=== PATIENT | male | born 1980 | race Asian ===

== ENCOUNTER 2021-08-11 20:41 | Emergency (ER) | payer SELFPAY ==
[2021-08-11 23:26] VITALS: BP 119/98
--- NOTE | 2021-08-11 23:42 | Emergency Department Report ---
ED Alcohol HPI - General Chief Complaint: Alcohol Stated Complaint: DT(WITHDRAWAL FROM ETOH) Time Seen by Provider: 08/11/21 23:35 Source: patient, EMS Mode of arrival: Stretcher Limitations: No Limitations - History of Present Illness Initial Comments: Patient is 41 years old male with history of chronic alcohol abuse. Patient brought to the emergency room via EMS from home for evaluation of alcohol withdrawal symptoms. Patient stated that last time he drink yesterday. He stated that he drinks vodka every day. Patient denied any suicidal or homicidal ideation. No visual or auditory hallucination. No history of seizure. No tremor. Patient denies any chest pain or shortness of breath. Patient stated that he just wants something to eat. Patient also stated that he has been outside in the sun and it was hot and he feels like he is dehydrated. MD Complaint: alcohol dependence Chronic Alcohol Use: Yes Recent Trauma: No Associated Symptoms: denies other symptoms Treatments Prior to Arrival: none - Related Data Allergies Allergy/AdvReac Type Severity Reaction Status Date / Time No Known Allergies Allergy Unverified 08/11/21 23:26 ED Review of Systems ROS: Stated complaint: DT(WITHDRAWAL FROM ETOH) Other details as noted in HPI Comment: All other systems reviewed and negative Constitutional: denies: chills, fever Respiratory: denies: cough, shortness of breath, SOB with exertion, wheezing Cardiovascular: palpitations. denies: chest pain Gastrointestinal: denies: abdominal pain, nausea, vomiting, diarrhea, constipation, hematemesis, melena, hematochezia Musculoskeletal: denies: back pain Neurological: denies: headache, weakness, numbness, paresthesias, confusion, abnormal gait Psychiatric: denies: anxiety, depression, auditory hallucinations, visual hallucinations, homicidal thoughts, suicidal thoughts ED Past Medical Hx - Past Medical History Previous Medical History?: Yes Additional medical history: HEP C, ETOH Abuse - Surgical History Past Surgical History?: No - Social History Smoking Status: Current Every Day Smoker Substance Use Type: Alcohol ED Physical Exam - General Limitations: No Limitations General appearance: alert, in no apparent distress - Head Head exam: Present: atraumatic, normocephalic, normal inspection - Eye Eye exam: Present: normal appearance - ENT ENT exam: Present: normal exam - Neck Neck exam: Present: normal inspection, full ROM. Absent: tenderness, meningismus - Respiratory Respiratory exam: Present: normal lung sounds bilaterally - Cardiovascular Cardiovascular Exam: Present: regular rate, normal heart sounds. Absent: normal rhythm, bradycardia, tachycardia - GI/Abdominal GI/Abdominal exam: Present: soft. Absent: distended, tenderness, guarding, rebound, rigid - Extremities Exam Extremities exam: Present: normal inspection, full ROM, normal capillary refill. Absent: tenderness, pedal edema, joint swelling, calf tenderness - Back Exam Back exam: Present: normal inspection, full ROM. Absent: CVA tenderness (R), CVA tenderness (L) - Neurological Exam Neurological exam: Present: alert, oriented X3, CN II-XII intact, normal gait, reflexes normal. Absent: motor sensory deficit - Psychiatric Psychiatric exam: Present: normal mood. Absent: homicidal ideation, suicidal ideation - Skin Skin exam: Present: warm, intact, normal color ED Course Vital Signs 08/11/21 08/12/21 23:18 02:01 Temperature 98.9 F Pulse Rate 103 H Respiratory 16 Rate Blood Pressure 119/98 O2 Sat by Pulse 96 98 Oximetry ED Medical Decision Making - Lab Data Result diagrams: 08/11/21 23:55 08/11/21 23:55 - Medical Decision Making Patient is 41 years old male with history of chronic alcohol abuse. Patient brought to the emergency room via EMS from home for evaluation of alcohol withdrawal symptoms. Patient stated that last time he drink yesterday. He stated that he drinks vodka every day. Patient denied any suicidal or homicidal ideation. No visual or auditory hallucination. No history of seizure. No tremor. Patient denies any chest pain or shortness of breath. Patient stated that he just wants something to eat. Patient also stated that he has been outside in the sun and it was hot and he feels like he is dehydrated. Labs reviewed and showed a CK of 1332. Patient started on normal saline. Patient remained stable in the ER with stable vital sign. Critical care attestation.: If time is entered above; I have spent that time in minutes in the direct care of this critically ill patient, excluding procedure time. ED Disposition Clinical Impression: Rhabdomyolysis, Alcohol withdrawal Disposition: HOME / SELF CARE / HOMELESS Is pt being admited?: No Condition: Stable Instructions: Rhabdomyolysis, Alcohol Withdrawal Syndrome Referrals: PRIMARY CARE, [Referring] - 3-5 Days
[2021-08-11] MEDS ORDERED: LORazepam 2 MG/ML VIAL IV PRN ×3 (23:56)
[2021-08-12 00:20] LABS: Basophils # (Auto) 0.1 K/mm3 (0.0-0.1); Basophils % (Auto) 0.8 % (0.0-1.8); Eosinophils # (Auto) 0.1 K/mm3 (0.0-0.4); Eosinophils % (Auto) 1.2 % (0.0-4.3); Hematocrit 39.4 % (35.5-45.6); Hemoglobin 13.4 gm/dl (11.8-15.2); Lymphocytes % (Auto) 20.3 % (13.4-35.0); Mean Corpuscular HGB Conc 34 % (32-34); Mean Corpuscular Volume 97 fl (84-94); Monocytes # (Auto) 1.1 K/mm3 (0.0-0.8); Monocytes % (Auto) 10.9 % (0.0-7.3); Platelet Count 275 K/mm3 (140-440); Red Blood Count 4.05 M/mm3 (3.65-5.03); Red Cell Distribution Width 14.5 % (13.2-15.2)
[2021-08-12 00:33] LABS: BUN/Creatinine Ratio 23; Blood Urea Nitrogen 18 mg/dL (9-20); Calcium 9.2 mg/dL (8.4-10.2); Hemolysis Index 5
[2021-08-12] MEDS ORDERED: SODIUM CHLORIDE 0.9% 1000 ML 1,000 ML IV ONE (01:46)
== END 2021-08-12 06:00 | disposition home or self-care (01) ==
LOC: ED 20:41
DX: M62.82 Rhabdomyolysis (principal); F10.239 Alcohol dependence with withdrawal, unspecified; F17.200 Nicotine dependence, unspecified, uncomplicated
CPT/HCPCS: 36415; 80048; 82550; 85025; 96360; 99284; J7030; 80320; G0480

== ENCOUNTER 2021-08-12 11:49 | Emergency (ER) | payer SELFPAY ==
[2021-08-12 13:59] LABS: Basophils % (Auto) 0.7 % (0.0-1.8); Eosinophils # (Auto) 0.1 K/mm3 (0.0-0.4); Eosinophils % (Auto) 1.8 % (0.0-4.3); Hematocrit 39.1 % (35.5-45.6); Lymphocytes # (Auto) 1.3 K/mm3 (1.2-5.4); Lymphocytes % (Auto) 23.4 % (13.4-35.0); Mean Corpuscular HGB Conc 33 % (32-34); Mean Corpuscular Volume 98 fl (84-94); Monocytes # (Auto) 0.5 K/mm3 (0.0-0.8); Monocytes % (Auto) 8.8 % (0.0-7.3); Platelet Count 252 K/mm3 (140-440); Red Blood Count 3.99 M/mm3 (3.65-5.03); Red Cell Distribution Width 14.8 % (13.2-15.2)
[2021-08-12 14:13] LABS: Blood Urea Nitrogen 15 mg/dL (9-20); Calcium 8.7 mg/dL (8.4-10.2); Hemolysis Index 18
[2021-08-12 14:15] LABS: BUN/Creatinine Ratio 25
--- NOTE | 2021-08-12 14:21 | Consultation ---
History of Present Illness - Reason for Consult Consult date: 08/12/21 Reason for consult: SI, ETOH - History of Present Psychiatric Illness HPI: Patient is 41 years old male with history of chronic alcohol abuse. Patient brought to the emergency room via EMS from home for evaluation of alcohol withdrawal symptoms. Patient stated that last time he drink yesterday. He stated that he drinks vodka every day. Patient denied any suicidal or homicidal ideation. No visual or auditory hallucination. No history of seizure. No tremor. Patient denies any chest pain or shortness of breath. Patient stated that he just wants something to eat. Patient also stated that he has been outside in the sun and it was hot and he feels like he is dehydrated. The patient was seen today. He says he's been having increasing paranoia. The patient says "everything scares me." He appears anxious. He says he feels suicidal but denies having a plan. The patient says he has a history of schizophrenia but hasn't been on meds in years. He says "I thought I could con trol it." He denies hallucinations. The patient says he drinks a 12 pack to a case of been daily. He also says he drinks vodka. 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 PAST PSYCHIATRIC HISTORY: Diagnoses: Schizophrenia Suicide attempts or Self-harm behavior: Yes Prior psychiatric hospitalizations: Yes Substance Abuse history: THC, Alcohol Previous psychiatric medications tried: Could not recall Outpatient treatment: Denies PAST MEDICAL HISTORY: None reported Family Psychiatric History: None reported or documented SOCIAL HISTORY Marital Status: Single Living Arrangements: Homeless Employment Status: Unemployed Access to guns/weapons: Denies Education: History of Abuse:Denies Legal History: Denies REVIEW OF SYSTEMS Constitutional: Negative for weight loss ENT: Negative for stridor Respiratory: Negative for cough or hemoptysis All other systems reviewed and are negative MENTAL STATUS EXAMINATION General Appearance and Behavior: Age appropriate, wearing appropriate clothes, cooperative, polite with questioning, fair eye contact Cooperation: cooperative Psychomotor Behavior: Psychomotor normal Mood: depressed, anxious Affect and affective range: congruent with stated mood Thought Process: goal directed Thought Content: SI, paranoia Speech: Normal volume, Regular rate and rhythm Suicidal Ideation: Yes Homicidal Ideation: Denies Hallucination: Denies Delusions: yes, paranoia Impulse Control: Limited Insight and Judgment: Limited Memory: Limited Attention: Distracted Orientation: a/o x 3 Diagnoses: Schizophrenia Alcohol Dependence Treatment Plan 1013 Risperidone 0.5mg po BID Vistaril 25mg po BID Trazodone 50mg po qhs CIWA Sitter: Defer to primary Medical: Per primary Disposition: recommend acute psychiatric inpatient treatment Will follow. Thanks Case staffed with Dr. Ramos Medications and Allergies Allergies Allergy/AdvReac Type Severity Reaction Status Date / Time No Known Allergies Allergy Unverified 08/11/21 23:26 Home Medications Medication Instructions Recorded Confirmed Last Taken Type chlordiazePOXIDE [Librium] 25 mg PO Q8H #15 capsule 08/12/21 Unknown Rx Mental Status Exam - Vital signs Last Vital Signs Temp 98.5 F 08/12/21 12:17 Pulse 79 08/12/21 12:17 Resp 20 08/12/21 12:17 BP 134/85 08/12/21 12:17 Pulse Ox 99 08/12/21 12:17 Results Result Diagrams: 08/12/21 13:09 08/12/21 13:09 Abnormal lab results 08/12/21 08/12/21 08/12/21 Range/Units 13:09 13:09 13:09 MCV 98 H (84-94) fl MCH 33 H (28-32) pg [place] % (Auto) 8.8 H (0.0-7.3) % Sodium 133 L (137-145) mmol/L Carbon Dioxide 21 L (22-30) mmol/L Creatinine 0.6 L (0.8-1.3) mg/dL Glucose 123 H (75-100) mg/dL Acetaminophen 5.0 L (10.0-30.0) ug/mL All other labs normal.
[2021-08-12] MEDS ORDERED: chlordiazePOXIDE 25 MG CAP PO PRN (14:27)
[2021-08-12] MEDS ORDERED: LORazepam 2 MG/ML VIAL IV PRN (14:27)
--- NOTE | 2021-08-12 15:00 | Event Note ---
Date: 08/12/21 41-year-old with a history of anxiety and depression and schizophrenia who now presents with paranoid thoughts and suicidal thoughts for the last couple of days progressively getting worse. Patient states he was trying to get the thoughts of his head. Patient was seen by psychiatric team this morning and was suggested to be 1013 and to continue home medications. No new complaint at this point.
--- NOTE | 2021-08-12 15:08 | Emergency Department Report ---
ED Psych HPI - General Chief Complaint: Psych Stated Complaint: MH ISSUES Time Seen by Provider: 08/12/21 12:51 Source: patient Mode of arrival: Ambulatory - History of Present Illness Initial Comments: 41-year-old with a history of anxiety and depression and schizophrenia who now presents with paranoid thoughts and suicidal thoughts for the last couple of days progressively getting worse. Patient states he was trying to get the thoughts of his head. Patient was seen by psychiatric team this morning and was suggested to be 1013 and to continue home medications. No new complaint at this point. MD Complaint: suicidal ideation - Related Data Previous Rx's Medication Instructions Recorded Last Taken Type chlordiazePOXIDE [Librium] 25 mg PO Q8H #15 capsule 08/12/21 Unknown Rx Allergies Allergy/AdvReac Type Severity Reaction Status Date / Time No Known Allergies Allergy Unverified 08/11/21 23:26 ED Review of Systems ROS: Stated complaint: MH ISSUES Other details as noted in HPI Comment: All other systems reviewed and negative Psychiatric: depression, homicidal thoughts, suicidal thoughts ED Past Medical Hx - Past Medical History Additional medical history: HEP C, ETOH Abuse - Social History Smoking Status: Current Some Day Smoker Substance Use Type: Marijuana, Methamphetamines - Medications Home Medications: Home Medications Medication Instructions Recorded Confirmed Last Taken Type chlordiazePOXIDE [Librium] 25 mg PO Q8H #15 capsule 08/12/21 Unknown Rx ED Physical Exam - General Limitations: No Limitations General appearance: alert, in no apparent distress - Head Head exam: Present: normal inspection - Eye Eye exam: Present: normal appearance Pupils: Present: normal accommodation - ENT ENT exam: Present: normal exam, normal orophraynx, mucous membranes moist - Neck Neck exam: Present: normal inspection, full ROM. Absent: tenderness - Respiratory Respiratory exam: Present: normal lung sounds bilaterally. Absent: respiratory distress, accessory muscle use - Cardiovascular Cardiovascular Exam: Present: regular rate, normal rhythm, normal heart sounds - GI/Abdominal GI/Abdominal exam: Present: soft, normal bowel sounds. Absent: tenderness - Extremities Exam Extremities exam: Present: normal inspection, normal capillary refill. Absent: tenderness, pedal edema - Back Exam Back exam: Absent: tenderness - Neurological Exam Neurological exam: Present: alert, oriented X3 - Psychiatric Psychiatric exam: Present: normal affect, normal mood, suicidal ideation - Skin Skin exam: Present: warm, intact ED Course Vital Signs 08/12/21 08/12/21 08/12/21 12:17 14:38 14:49 Temperature 98.5 F 97.8 F Pulse Rate 79 78 79 Respiratory 20 15 15 Rate Blood Pressure 134/85 149/78 Blood Pressure 145/75 [Right] O2 Sat by Pulse 99 99 100 Oximetry - Reevaluation(s) Reevaluation #1: 08/12/21 15:07 here with paranoid and suicidal thought-- will go ahead and order routine psych labs and have mental health consulted--will continue to monitor this patient in the meantime. ED Medical Decision Making - Lab Data Result diagrams: 08/12/21 13:09 08/12/21 13:09 Critical care attestation.: If time is entered above; I have spent that time in minutes in the direct care of this critically ill patient, excluding procedure time. ED Disposition Clinical Impression: Paranoid schizophrenia, Suicide ideation Disposition: 30 STILL A PATIENT Is pt being admited?: No Does the pt Need Aspirin: No Condition: Stable
[2021-08-12] MEDS: risperiDONE 0.25 MG TAB PO SCH ×2 (15:19→22:30)
[2021-08-12] MEDS: hydrOXYzine PAMOATE 25 MG CAP PO SCH ×2 (15:19→22:30)
[2021-08-12] MEDS ORDERED: traZODone 50 MG TAB PO SCH (22:00)
--- NOTE | 2021-08-13 09:40 | Progress Note ---
Subjective - Reason for Consult Consult date: 08/13/21 Reason for consult: SI - Chief Complaint Chief complaint: The patient was seen today. He is awake. He says he's doing alright. I ask him was he feeling better than yesterday, he replies "yes I am." The patient says he slept good and his appetite is "very well." He denies SI/HI or hallucinations of any kind. REVIEW OF SYSTEMS Constitutional: Negative for weight loss ENT: Negative for stridor Respiratory: Negative for cough or hemoptysis All other systems reviewed and are negative MENTAL STATUS EXAMINATION General Appearance and Behavior: Age appropriate, wearing appropriate clothes, cooperative, polite with questioning, fair eye contact Cooperation: cooperative Psychomotor Behavior: Psychomotor normal Mood: alright, better Affect and affective range: congruent with stated mood Thought Process: goal directed Thought Content: None Speech: Normal volume, Regular rate and rhythm Suicidal Ideation: Denies Homicidal Ideation: Denies Hallucination: Denies Delusions: Denies Impulse Control: Limited Insight and Judgment: Limited Memory: Limited Attention: attentive Orientation: a/o x 3 Diagnoses: Schizophrenia Alcohol Dependence Treatment Plan d/c 1013 Risperidone 0.5mg po BID Vistaril 50mg po BID Trazodone 50mg po qhs Sitter: Defer to primary Medical: Per primary Disposition: Do not recommend acute psychiatric inpatient treatment. The patient understands that if any SI/HI or fear of endangerment arise he is to seek immediate assistance. The [employer] operator to give all necessary resources Will sign off. Thanks Case staffed with Dr. Ramos Mental Status Exam - Vital signs Last Vital Signs Temp 97.8 F 08/12/21 14:49 Pulse 79 08/12/21 14:49 Resp 15 08/12/21 14:49 BP 145/75 08/12/21 14:49 Pulse Ox 100 08/12/21 14:49
[2021-08-13 09:47] VITALS: BP 109/60
[2021-08-13 10:05] LABS: Bilirubin,Urine NEG (Negative); Blood,Urine NEG (Negative); Color,Urine Yellow (Yellow); Protein,Urine <15 mg/dL mg/dL (Negative)
[2021-08-13 10:06] LABS: Mucus,Urine FEW /HPF
[2021-08-13 10:24] LABS: Amphetamine Screen,Urine Negative; Cocaine Screen,Urine Negative; Methadone Screen,Urine Negative; Opiate Screen,Urine Negative
[2021-08-13 10:37] LABS: Benzodiazepines Screen,Urine Positive; Cannabinoid Screen,Urine Positive
[2021-08-13] MEDS: risperiDONE 0.25 MG TAB PO SCH (11:52)
[2021-08-13] MEDS: hydrOXYzine PAMOATE 25 MG CAP PO SCH (11:52)
--- NOTE | 2021-08-13 11:57 | Event Note ---
Date: 08/13/21 Patient has been cleared by psychiatry patient can be discharged home on evaluation patient has no suicidal or homicidal ideation.
== END 2021-08-13 12:40 | disposition still patient (30) ==
LOC: ED 11:49
DX: F20.0 Paranoid schizophrenia (principal); R45.851 Suicidal ideations; F17.200 Nicotine dependence, unspecified, uncomplicated
CPT/HCPCS: 36415; 80048; 80307; 80320; 81001; 85025; 99284; G0480